=== PATIENT | male | born 1995 | race American Indian/Alaskan Native ===

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

== ENCOUNTER 2017-10-26 18:50 | Emergency (ER) | payer OTHER ==
[2017-10-26] MEDS ORDERED: Ondansetron 4 MG/2 ML SDV IV ONE (19:08)
[2017-10-26] MEDS ORDERED: Sodium Chloride 0.9% 1,000 ML IV ONE ×2 (19:08→21:36)
[2017-10-26] MEDS ORDERED: Sodium Chloride 0.9% 10 ML Syringe FLUSH PRN (19:09)
--- NOTE | 2017-10-26 19:13 | EDM.PDOC ---
ED HPI GENERAL MEDICAL PROBLEM - General Chief Complaint: Abdominal Pain Stated Complaint: RT LOWER ABD PAIN [id number] Time Seen by Provider: 10/26/17 19:11 Source of Information: Reports: Patient, RN, RN Notes Reviewed History Limitations: Reports: No Limitations - History of Present Illness INITIAL COMMENTS - FREE TEXT/NARRATIVE: Pt to ER with c/o RLQ pain beginning today about 5-6pm abruptly. Patient rates the pain at 9/10. It radiates to his right flank and his groin. Exacerbated by movement of his legs and laying on the affected side. Relieved by rest. Associated with nausea but no vomiting. Does not report fevers or chills. No melena or hematochezia. No constipation. No dysuria, frequency, or hematuria. Vital Signs - 24 hr 10/26/17 19:02 Temperature [ 98.4 F Temporal] Pulse, 53 L Peripheral [ Left Pulse Oximetry] Respiratory 15 Rate Blood Pressure 166/85 H [Left Upper Arm ] O2 Sat by Pulse 100 Oximetry Onset: Today, Sudden Right Lower Abdomen Pain Score (Numeric/FACES): 9 - Related Data Allergies Allergy/AdvReac Type Severity Reaction Status Date / Time No Known Allergies Allergy Verified 10/26/17 19:07 Home Meds: Home Meds . [No Known Home Meds] 12/13/16 [History] Past Medical History - Past Health History Medical/Surgical History: Denies Medical/Surgical History - Infectious Disease History Infectious Disease History: Reports: Chicken Pox Social & Family History - Tobacco Use Smoking Status *Q: Never Smoker - Caffeine Use Caffeine Use: Reports: None - Recreational Drug Use Recreational Drug Use: No ED ROS GENERAL - Review of Systems Review Of Systems: ROS reveals no pertinent complaints other than HPI. ED EXAM, GI/ABD - Physical Exam Exam: See Below Exam Limited By: No Limitations General Appearance: Alert, WD/WN, Moderate Distress Eyes: Bilateral: Normal Appearance, EOMI Ears: Normal External Exam, Hearing Grossly Normal Nose: Normal Inspection Throat/Mouth: Normal Inspection, Normal Voice, No Airway Compromise Head: Atraumatic, Normocephalic Neck: Normal Inspection, Supple, Non-Tender, Full Range of Motion Respiratory/Chest: No Respiratory Distress, Lungs Clear, Normal Breath Sounds, No Accessory Muscle Use, Chest Non-Tender Cardiovascular: Normal Peripheral Pulses, Regular Rate, Rhythm, No Edema, No Gallop, No JVD, No Murmur, No Rub GI/Abdominal Exam: Normal Bowel Sounds, Soft, No Organomegaly, No Distention, Guarding, Rebound, Tender (RLQ) (Male) Exam: No Hernia Rectal (Males) Exam: Deferred Back Exam: Normal Inspection, Full Range of Motion Extremities: Normal Inspection, Normal Range of Motion, Non-Tender, No Pedal Edema, Normal Capillary Refill Neurological: Alert, Oriented, CN II-XII Intact, Normal Cognition, Normal Gait, Normal Reflexes, No Motor/Sensory Deficits Psychiatric: Normal Affect, Normal Mood Skin Exam: Warm, Dry, Intact, Normal Color, No Rash Lymphatic: No Adenopathy Course - Vital Signs Last Recorded V/S: Last Vital Signs Temp 98.4 F 10/26/17 22:45 Pulse 68 10/26/17 22:45 Resp 15 10/26/17 22:45 BP 125/54 L 10/26/17 22:45 Pulse Ox 98 10/26/17 22:45 - Orders/Labs/Meds Orders: Active Orders 24 hr Category Date Time Status Peripheral IV Care [RC] . DIRECTED Care 10/26/17 19:10 Active UA W/MICROSCOPIC [URIN] Stat Lab 10/26/17 19:22 Ordered Peripheral IV Insertion Adult [OM.PC] Stat Oth 10/26/17 19:10 Ordered Labs: Laboratory Tests 10/26/17 10/26/17 10/26/17 Range/Units 19:05 19:05 19:22 WBC 18.0 H (5.0-10.0) 10^3/uL RBC 5.87 (4.6-6.2) 10^6/uL Hgb 16.7 (14.0-18.0) g/dL Hct 45.7 (40.0-54.0) % MCV 77.9 L (80-100) fL MCH 28.4 (27.0-34.0) pg MCHC 36.5 H (33.0-35.0) g/dL Plt Count 264 (150-450) 10^3/uL Neut % (Auto) 80.2 H (42.2-75.2) % Lymph % (Auto) 12.6 L (20.5-50.1) % Barnes % (Auto) 6.8 (2-8) % Eos % (Auto) 0.1 L (1.0-3.0) % Baso % (Auto) 0.3 (0.0-1.0) % Sodium 139 (135-145) mmol/L Potassium 3.5 L (3.6-5.0) mmol/L Chloride 104 (101-111) mmol/L Carbon Dioxide 21.0 (21.0-31.0) mmol/L Anion Gap 17.5 BUN 20 H (7-18) mg/dL Creatinine 1.1 (0.6-1.3) mg/dL Est Cr Clr Drug Dosing 96.67 mL/min Estimated GFR (MDRD) > 60 BUN/Creatinine Ratio 18.18 Glucose 112 H (74-105) mg/dL Calcium 10.1 (8.4-10.2) mg/dl Total Bilirubin 0.9 (0.2-1.0) mg/dL AST 27 (10-42) IU/L ALT 31 (10-60) IU/L Alkaline Phosphatase 80 (42-121) IU/L Total Protein 8.2 (6.7-8.2) g/dl Albumin 4.9 (3.2-5.5) g/dl Globulin 3.3 Albumin/Globulin Ratio 1.48 Amylase 61 (28-100) U/L Lipase 26 (22-51) U/L Urine Color Dark yellow (YELLOW) Urine Appearance Cloudy (CLEAR) Urine pH 5.0 (5.0-9.0) Ur Specific Point Clear >= 1.030 (1.005-1.030) Urine Protein 30 H (NEGATIVE) Urine Glucose (UA) Negative (NEGATIVE) Urine Ketones 15 H (NEGATIVE) Urine Occult Blood Large H (NEGATIVE) Urine Nitrite Negative (NEGATIVE) Urine Bilirubin Negative (NEGATIVE) Urine Urobilinogen 0.2 (0.2-1.0) mg/dL Ur Leukocyte Esterase Negative (NEGATIVE) Urine RBC >100 H /HPF Urine WBC 0-5 (0-5/HPF) /HPF Ur Epithelial Cells Rare /HPF Urine Bacteria Rare (0-FEW/HPF) /HPF Urine Mucus Rare /LPF Meds: Medications Discontinued Medications Generic Name Dose Route Start Last Admin Trade Name Freq PRN Reason Stop Dose Admin Hydromorphone HCl 0.5 mg 10/26/17 19:23 10/26/17 19:26 Dilaudid IVPUSH 10/26/17 19:24 0.5 mg ONETIME ONE Administration Sodium Chloride 1,000 mls @ 999 mls/hr 10/26/17 19:08 10/26/17 19:12 Normal Saline IV 10/26/17 20:08 999 mls/hr .BOLUS ONE Administration Sodium Chloride 1,000 mls @ 100 mls/hr 10/26/17 21:36 10/26/17 21:40 Normal Saline IV 10/27/17 07:35 100 mls/hr .BOLUS ONE Administration Iopamidol 100 ml 10/26/17 20:58 10/26/17 21:55 Isovue-300 (61%) IVPUSH 10/26/17 20:59 100 ml ONETIME ONE Administration Ondansetron HCl 4 mg 10/26/17 19:08 10/26/17 19:12 Zofran IV 10/26/17 19:09 4 mg ONETIME ONE Administration Sodium Chloride 10 ml 10/26/17 19:09 Saline Flush FLUSH ASDIRECTED PRN Keep Vein Open - Radiology Interpretation Free Text/Narrative:: CT of Abdomen/Pelvis with contrast: IMPRESSION: No acute findings. Thank you for allowing us to participate in the care of your patient. Dictated and Authenticated by: Douglas Mcintosh DO 10/26/2017 8:22 PM Central Time ([place] & [place]) See rad report - Re-Assessments/Exams Free Text/Narrative Re-Assessment/Exam: 10/26/17 23:50 Discussed patient case with Dr. Vidal who states he would like me to discuss the patient case with Dr. Hartman, surgeon at [facility]. Patient case discussed with Dr. Hartman who states there is no need for the patient to be transferred to [place] at this time. He states the patient can be observed inpatient overnight. Dr. Atwood was called and he states he will not accept the patient here and that the patient needs to be evaluated by a surgeon. Pt case discussed with Dr. Greene who feels the patient could be managed and observed here. He reluctantly accepted the patient for transfer to [facility] in . 10/27/17 04:33 Departure - Departure Time of Disposition: 21:34 Disposition: Home, Self-Care 01 Condition: Fair Clinical Impression: Abdominal pain Qualifiers: Abdominal location: right lower quadrant Qualified Code(s): R10.31 - Right lower quadrant pain - Discharge Information *PRESCRIPTION DRUG MONITORING PROGRAM REVIEWED*: No *COPY OF PRESCRIPTION DRUG MONITORING REPORT IN PATIENT MARISABEL: No Referrals: PCP,None [Primary Care Provider] - Forms: ED Department Discharge, Interfacility Transfer EMTALA - My Orders Last 24 Hours: My Active Orders 10/26/17 19:10 Peripheral IV Care [RC] . DIRECTED Peripheral IV Insertion Adult [OM.PC] Stat 10/26/17 19:22 UA W/MICROSCOPIC [URIN] Stat - Assessment/Plan Last 24 Hours: My Active Orders 10/26/17 19:10 Peripheral IV Care [RC] . DIRECTED Peripheral IV Insertion Adult [OM.PC] Stat 10/26/17 19:22 UA W/MICROSCOPIC [URIN] Stat
[2017-10-26] MEDS ORDERED: HYDROmorphone 0.5 MG/0.5 ML Syringe IVPUSH ONE (19:23)
[2017-10-26 19:32] LABS: ANION GAP 17.5; CHLORIDE,CL 104 mmol/L (101-111); SODIUM,NA 139 mmol/L (135-145)
[2017-10-26] MEDS ORDERED: Iopamidol 612 MG/ML 100 ML Bottle IVPUSH ONE (20:58)
[2017-10-26 22:46] VITALS: BP 125/54
== END 2017-10-26 22:45 | disposition home or self-care (01) ==
LOC: DL.ED 18:50
DX: R10.31 Right lower quadrant pain (principal); R11.0 Nausea
CPT/HCPCS: 36415; 74177; 80053; 81001; 82150; 83690; 85025; 96361; 96374; 96375; 99284; 99285; J1170; J2405; J7030; Q9967

== ENCOUNTER 2020-10-20 15:16 | Emergency (ER) | payer OTHER ==
[2020-10-20 15:32] VITALS: BP 127/75; PULSE 70
[2020-10-20] MEDS: Lidocaine 1% 30 ML SDV INJECT ONE (16:14)
[2020-10-20] MEDS: Diphtheria,Pertussis(Acell),Tetanus Vaccine 0.5 ML Syringe IM ONE (16:14)
[2020-10-20] MEDS: Bacitracin Oint 1 GM U/D Packet TOP ONE (16:14)
--- NOTE | 2020-10-20 17:37 | EDM.PDOC ---
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 The patient reports his injury occurred approximately one hour prior to his arrival to this facility. 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 He denies loss of motor or sensory function to the affected digit. The patient states he is unsure of the date of his last tetanus vaccine. left index finger Pain Score (Numeric/FACES): 5 - Related Data Allergies Allergy/AdvReac Type Severity Reaction Status Date / Time No Known Allergies Allergy Verified 10/20/20 15:32 Home Meds: Home Meds . [No Known Home Meds] 12/13/16 [History] Past Medical History - Past Health History Medical/Surgical History: Denies Medical/Surgical History - Infectious Disease History Infectious Disease History: Reports: Chicken Pox Social & Family History - Family History Family Medical History: No Pertinent Family History - Tobacco Use Tobacco Use Status *Q: Never Tobacco User Second Hand Smoke Exposure: No - Caffeine Use Caffeine Use: Reports: None - Recreational Drug Use Recreational Drug Use: No Review of Systems - Review of Systems Review Of Systems: Comprehensive ROS is negative, except as noted in HPI. ED EXAM, GENERAL - Physical Exam Exam: See Below Exam Limited By: No Limitations General Appearance: Alert, No Apparent Distress Eye Exam: Bilateral Eye: EOMI, Normal Inspection, PERRL (3mm) Ears: Normal External Exam, Hearing Grossly Normal Nose: Normal Inspection, Normal Mucosa, No Blood Throat/Mouth: Normal Inspection, Normal Oropharynx, Normal Voice, No Airway Compromise Head: Atraumatic, Normocephalic Neck: Normal Inspection, Supple, Non-Tender, Full Range of Motion Respiratory/Chest: No Respiratory Distress, Lungs Clear, Normal Breath Sounds, No Accessory Muscle Use Cardiovascular: Normal Peripheral Pulses, Regular Rate, Rhythm, No Gallop, No JVD, No Murmur, No Rub Peripheral Pulses: 2+: Radial (L) GI/Abdominal: Normal Bowel Sounds, Soft, Non-Tender (Male) Exam: Deferred Rectal (Males) Exam: Deferred Back Exam: Normal Inspection, Full Range of Motion Extremities: Normal Capillary Refill, Arm Pain (To left second digit). No: Joint Swelling, Increased Warmth, Mottled, Pallor, Redness Neurological: Alert, Oriented, CN II-XII Intact, Normal Cognition, Normal Gait, No Motor/Sensory Deficits Psychiatric: Normal Affect, Normal Mood Skin Exam: Warm, Dry, Normal Color, No Rash, Wound/Incision (2cm laceration surrounding left index anterior finger tip) Lymphatic: No Adenopathy ED TRAUMA EXTREMITY PROCEDURES - Laceration/Wound Repair Left Anterior Distal Digit - 2nd (Index) Lac/Wound Length In cm: 2 Appearance: Superficial, Linear, Clean Distal NVT: Neuro & Vascular Intact, No Tendon Injury Anesthetic Type: Local Local Anesthesia - Lidocaine (Xylocaine): 1% Plain Local Anesthetic Volume: Other (8) Skin Prep: Chlorhexidine (Hibiciens), Saline, Sterile Drape Saline Irrigation (cc's): 10 Exploration/Debridement/Repair: Wound Explored, In a Bloodless Field, Explored to Base, No Foreign Material Found, Wound Margins Revised Closed With: Sutures Suture Size: 4-0 # of Sutures: 14 Suture Type: Prolene, Interrupted, Simple Drain Placement: No Sterile Dressing Applied: Nurse Tetanus Status Addressed: Yes Complications: No Course - Vital Signs Last Recorded V/S: Last Vital Signs Temp 96.2 F L 10/20/20 15:26 Pulse 70 10/20/20 15:26 Resp 20 10/20/20 15:26 BP 127/75 10/20/20 15:26 Pulse Ox 97 10/20/20 15:26 - Orders/Labs/Meds Meds: Medications Discontinued Medications Generic Name Dose Route Start Last Admin Trade Name Freq PRN Reason Stop Dose Admin Bacitracin 1 dose 10/20/20 15:28 10/20/20 16:14 Bacitracin Oint 1 Gm U/D Packet TOP 10/20/20 15:29 1 dose ONETIME ONE Administration Diphtheria/Tetanus/Acell Pertussis 0.5 ml 10/20/20 15:52 10/20/20 16:14 Diphtheria,Pertussis(Acell),Tetanus Vaccine 0.5 Ml Syringe IM 10/20/20 15:53 0.5 ml .ONCE ONE Administration Lidocaine HCl 30 ml 10/20/20 15:28 10/20/20 16:14 Lidocaine 1% 30 Ml Sdv INJECT 10/20/20 15:29 30 ml ONETIME ONE Administration - Re-Assessments/Exams Free Text/Narrative Re-Assessment/Exam: 10/20/20 Laceration to index finger sutured without complication. Boostrix administered. Discussed supportive cares for laceration including suture removal in seven days. Red flag signs and symptoms which would warrant reevaluation reviewed. Patient verbalized understanding and agreement with the plan of care. Departure - Departure Time of Disposition: 17:32 Disposition: Home, Self-Care 01 Condition: Good Clinical Impression: Laceration of right index finger w/o foreign body w/o damage to nail Qualifiers: Encounter type: initial encounter Qualified Code(s): S61.210A - Laceration without foreign body of right index finger without damage to nail, initial encounter - Discharge Information *PRESCRIPTION DRUG MONITORING PROGRAM REVIEWED*: Not Applicable *COPY OF PRESCRIPTION DRUG MONITORING REPORT IN PATIENT MARISABEL: Not Applicable Instructions: Laceration Care, Adult Forms: ED Department Discharge Additional Instructions: 1.) Follow up with any primary care facility for suture removal in seven days. 2.) Keep finger clean and dry. You may apply a bandage to the finger should drainage persist. 3.) Monitor for signs of infection, including redness, increased pain, white/phillips drainage. Sepsis Event Note (ED) - Evaluation Sepsis Screening Result: No Definite Risk
== END 2020-10-20 18:00 | disposition home or self-care (01) ==
LOC: DL.ED 15:16
DX: S61.210A Laceration without foreign body of right index finger without damage to nail, initial encounter (principal); Z23 Encounter for immunization; W26.8XXA Contact with other sharp object(s), not elsewhere classified, initial encounter; Y92.89 Other specified places as the place of occurrence of the external cause; Y99.0 Civilian activity done for income or pay
CPT/HCPCS: 12001; 90471; 90715; 99282-25

== ENCOUNTER 2022-09-12 09:21 | Emergency (ER) | payer OTHER ==
[2022-09-12] MEDS ORDERED: Sodium Chloride 0.9% 10 ML Syringe FLUSH PRN (09:34)
[2022-09-12] MEDS ORDERED: HYDROmorphone 0.5 MG/0.5 ML Syringe IVPUSH ONE (09:34)
[2022-09-12] MEDS ORDERED: Ondansetron 4 MG/2 ML SDV IVPUSH ONE (09:35)
[2022-09-12 09:47] LABS: HEMOGLOBIN 18.3 g/dL (14.0-18.0); MEAN CORPUSCULAR HEMOGLOBIN 29.9 pg (27.0-34.0); MEAN CORPUSCULAR HGB CONC 36.6 g/dL (33.0-35.0); MEAN CORPUSCULAR VOLUME 81.7 fL (80-100); PLATELET COUNT,PLT 297 10^3/uL (150-450); RED BLOOD CELL COUNT 6.12 10^6/uL (4.6-6.2); WHITE BLOOD CELL COUNT,WBC 13.6 10^3/uL (5.0-10.0)
[2022-09-12 09:47] LABS: APPEARANCE,URINE CLEAR (CLEAR); BILIRUBIN,URINE NEGATIVE (NEGATIVE); COLOR,URINE YELLOW (YELLOW); GLUCOSE,URINE NEGATIVE (NEGATIVE); KETONES,URINE 40 (NEGATIVE); LEUKOCYTE ESTERASE,URINE NEGATIVE (NEGATIVE); NITRITE,URINE NEGATIVE (NEGATIVE); OCCULT BLOOD,URINE TRACE-INTACT (NEGATIVE); PROTEIN,URINE 100 (NEGATIVE); UROBILINOGEN,URINE 0.2 mg/dL (0.2-1.0)
[2022-09-12 09:50] LABS: BASOPHILS PERCENT AUTO 0.3 % (0.0-1.0); EOSINOPHILS PERCENT AUTO 0.5 % (1.0-3.0); LYMPHOCYTES PERCENT AUTO 25.2 % (20.5-50.1); MONOCYTES PERCENT AUTO 6.9 % (2-8); NEUTROPHILS PERCENT AUTO 67.1 % (42.2-75.2)
[2022-09-12 09:52] LABS: AMPHETAMINES,URINE NEGATIVE (NEGATIVE); BARBITURATES,URINE NEGATIVE (NEGATIVE); BENZODIAZEPINE,URINE NEGATIVE (NEGATIVE); MDMA (ECSTASY), URINE NEGATIVE (NEGATIVE); METHADONE,URINE NEGATIVE (NEGATIVE); METHAMPHETAMINES,URINE NEGATIVE (NEGATIVE); OPIATES,URINE NEGATIVE (NEGATIVE); OXYCODONE,URINE NEGATIVE (NEGATIVE); PHENCYCLIDINE,URINE NEGATIVE (NEGATIVE); TCA,URINE NEGATIVE (NEGATIVE)
[2022-09-12] MEDS ORDERED: Sodium Chloride 0.9% 1,000 ML IV ONE ×2 (09:59→10:26)
[2022-09-12] MEDS ORDERED: Iopamidol 612 MG/ML 100 ML Bottle IVPUSH ONE (10:01)
[2022-09-12 10:04] LABS: BACTERIA,URINE RARE /HPF (0-FEW/HPF); EPITHELIAL CELLS,URINE RARE /HPF (NOT SEEN); MUCUS,URINE FEW /LPF (NOT SEEN); RBC,URINE 0-5 /HPF (0-5); WBC,URINE 0-5 /HPF (0-5/HPF)
[2022-09-12 10:05] LABS: EOSINOPHILS PERCENT MAN 2 % (1-3); LYMPHOCYTES PERCENT MAN 15 % (20-50); MONOCYTES PERCENT MAN 7 % (2-8); SEG NEUTROPHILS PERCENT MAN 76 % (42-75)
[2022-09-12 10:07] LABS: ALANINE AMINOTRANSFERASE,ALT 54 U/L (16-63); ALBUMIN 5.2 g/dL (3.4-5.0); ALKALINE PHOSPHATASE 102 U/L (46-116); AMYLASE 93 U/L (25-115); ANION GAP 21.4 mEq/L (7-13); ASPARTATE AMNIOTRANSFERASE,AST 39 U/L (15-37); BILIRUBIN TOTAL 0.9 mg/dL (0.2-1.0); BLOOD UREA NITROGEN,BUN 18 mg/dL (7-18); C-REACTIVE PROTEIN < 0.2 mg/dL (0.0-0.9); CALCIUM 9.9 mg/dL (8.5-10.1); CARBON DIOXIDE,CO2 21 mmol/L (21-32); CHLORIDE,CL 103 mmol/L (98-107); EST CRCL DRUG DOSING (CG) 84.92 mL/min; ESTIMATED GFR 86 mL/min (>=60); ETHANOL BLOOD MEDICAL < 3 mg/dL (0); GLUCOSE RANDOM 143 mg/dL (70-99); LIPASE 155 U/L (73-393); MAGNESIUM 1.9 mg/dL (1.8-2.4); POTASSIUM,K 3.4 mmol/L (3.5-5.1); PROTEIN TOTAL,TP 9.2 g/dL (6.4-8.2); SODIUM,NA 142 mmol/L (136-145)
[2022-09-12 10:11] LABS: LACTIC ACID 4.3 mmol/L (0.4-2.0)
[2022-09-12 10:31] VITALS: BP 213/98; PULSE 50
== END 2022-09-12 11:50 | disposition home or self-care (01) ==
LOC: DL.ED 09:21
DX: K52.9 Noninfective gastroenteritis and colitis, unspecified (principal)
CPT/HCPCS: 36415; 74170; 80053; 80305; 80307; 81001; 82150; 83605; 83690; 83735; 85025; 86140; 96361; 96374; 96375; 99284; C1758; J1170; J2405; J7030; Q9967; J3490